=== PATIENT | male | born 1935 | race Caucasian/White ===

== ENCOUNTER 2017-08-26 07:42 | Outpatient (CLI) | payer OTHER ==
[~2017-08-26 07:42] MED LIST: BAYER CHEWABLE81 MG PO; METFORMIN HYDRO25 GM PO; NABUMETONE500 MG PO; PERCOCET 5/3251 TAB PO
== END 2017-08-26 07:44 | disposition home or self-care (01) ==
LOC: SONOGRAMA 07:42
DX: R31.9 Hematuria, unspecified (principal)

== ENCOUNTER 2018-01-21 12:25 | Emergency (ER) | payer OTHER ==
[~2018-01-21] VITALS: Ht 177.8 cm; Wt 103.0 kg
[2018-01-21] MEDS ORDERED: AVALIDE 300-121 EACH (12:48)
[2018-01-21] MEDS ORDERED: DICLOFENAC SODI50 MG PO (14:52)
== END 2018-01-21 14:56 | disposition home or self-care (01) ==
LOC: ER 12:25
DX: M54.89 Other dorsalgia (principal)

== ENCOUNTER 2018-03-18 07:04 | Outpatient (CLI) | payer OTHER ==
[~2018-03-18 07:04] MED LIST changes: +AVALIDE 300-121 EACH; +DICLOFENAC SODI50 MG PO
== END 2018-03-18 08:03 | disposition home or self-care (01) ==
LOC: EDBD 07:04 → MRI 07:04 → RAD 07:04 → MRI 07:15
DX: M54.5 Low back pain (principal); M25.561 Pain in right knee; M25.562 Pain in left knee
CPT/HCPCS: 72148; 73721

== ENCOUNTER → 2018-04-24 | Outpatient (CLI) | payer OTHER | END | disposition home or self-care (01) | LOC: RAD 09:10 | DX: M54.5 Low back pain (principal) ==

== ENCOUNTER 2020-03-08 06:55 | Outpatient (CLI) | payer OTHER | END 2020-03-08 07:07 | disposition home or self-care (01) | LOC: LAB 06:55 | PROVIDERS: ATTEND Urology | DX: R97.20 Elevated prostate specific antigen [PSA] (principal); F52.21 Male erectile disorder; R31.1 Benign essential microscopic hematuria ==